=== PATIENT | male | born 1975 | race Caucasian/White ===

== ENCOUNTER 2017-03-28 11:05 | Emergency (ER) | payer BC, OTHER ==
[2017-03-28] MEDS ORDERED: CYCLOBENZAPRINE HCL 10 MG TABLET PO ONE (12:08)
[2017-03-28] MEDS ORDERED: DEXAMETHASONE SOD PHOS INJ 10 MG/1 ML VIAL IM ONE (12:08)
[2017-03-28] MEDS ORDERED: KETOROLAC TROMETHAMINE 60 MG/2 ML SDV IM ONE (12:08)
--- NOTE | 2017-03-28 12:14 | ER Document Report ---
ED Neck/Back Problem - General Chief Complaint: Back Pain Stated Complaint: BACK PAIN Time Seen by Provider: 03/28/17 11:47 Mode of Arrival: Ambulatory Information source: Patient Notes: 41-year-old male presents to ED for complaint of lower and upper back pain times about 9 days. He states they were living in [place] and will load a truck and moved to [place]. 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 He states at first he felt just not right then the first day he was stiff then the next morning he was still stiff and has not been able to work out the pain since then he states now the pain is going down both legs. TRAVEL OUTSIDE OF THE [place] IN LAST 30 DAYS: No - HPI Patient complains to provider of: Upper back, Lower back Onset: Other - 9 days Where: Outdoors, Public place Onset: Gradual Timing: Worse Quality of pain: Sharp, Throbbing Severity: Moderate Pain Level: 4 Context: Lifting - Patient loaded and unloaded a moving truck to move from [place] to [place] Recent injury: Possibly Associated symptoms: Radiation to leg, Lower back pain, Upper back pain. denies : Incontinence, Like prior neck/back pain, Motor loss, Numbness/tingling, Radiation to arm, Radiation to chest, Sensory loss, Sweaty, Unable to urinate Exacerbated by: Movement of trunk, Sitting position Relieved by: Nothing Similar symptoms previously: No Recently seen / treated by doctor: No - Related Data Allergies/Adverse Reactions: aspirin [Aspirin] Allergy (Verified 03/28/17 11:29) Penicillins Allergy (Verified 03/28/17 11:29) Past Medical History - General Information source: Patient - Social History Smoking Status: Never Smoker Cigarette use (# per day): No Chew tobacco use (# tins/day): No Smoking Education Provided: No Frequency of alcohol use: None Drug Abuse: None Lives with: Family Family History: Arthritis, CAD, CVA, DM, Hyperlipidemia, Hypertension, Malignancy, Thyroid Disfunction Patient has suicidal ideation: No - Past Medical History Cardiac Medical History: Reports: Hx Hypertension Pulmonary Medical History: Reports: None EENT Medical History: Reports: None Neurological Medical History: Reports: None Endocrine Medical History: Reports: None Renal/ Medical History: Reports: None Malignancy Medical History: Reports None GI Medical History: Reports: None Musculoskeltal Medical History: Reports Hx Musculoskeletal Trauma - neck fracture x2 and coccyx fracture Skin Medical History: Reports None Psychiatric Medical History: Reports: None Traumatic Medical History: Reports: None Infectious Medical History: Reports: None Past Surgical History: Reports: Hx Appendectomy - Immunizations Immunizations up to date: Yes Hx Diphtheria, Pertussis, Tetanus Vaccination: Yes Review of Systems - Review of Systems Constitutional: No symptoms reported EENT: No symptoms reported Cardiovascular: No symptoms reported Respiratory: No symptoms reported Gastrointestinal: denies: Diarrhea, Nausea, Constipation, Fecal incontinence Genitourinary: denies: Incontinence, Retention Male Genitourinary: No symptoms reported Musculoskeletal: Back pain, Muscle pain, Muscle stiffness Skin: No symptoms reported Hematologic/Lymphatic: No symptoms reported Neurological/Psychological: No symptoms reported -: Yes All other systems reviewed and negative Physical Exam - Vital signs Vitals: Temp Pulse Resp BP Pulse Ox 97.6 F 74 16 154/99 H 99 03/28/17 11:30 03/28/17 11:30 03/28/17 11:30 03/28/17 11:30 03/28/17 11:30 Interpretation: Normal - General General appearance: Appears well, Alert - HEENT Head: Normocephalic, Atraumatic Eyes: Normal Pupils: PERRL - Respiratory Respiratory status: No respiratory distress Chest status: Nontender Breath sounds: Normal Chest palpation: Normal - Cardiovascular Rhythm: Regular Heart sounds: Normal auscultation Murmur: No - Abdominal Inspection: Normal Distension: No distension Bowel sounds: Normal Tenderness: Nontender Organomegaly: No organomegaly - Back Back: Normal, Tender, Vertebra tenderness, Scars - Neck area. No: Deformity/ step-off, CVA tenderness, Scoliosis, Wounds - Extremities General upper extremity: Normal inspection, Nontender, Normal color, Normal ROM , Normal temperature General lower extremity: Normal inspection, Nontender, Normal color, Normal ROM , Normal temperature, Normal weight bearing. No: Dada's sign - Neurological Neuro grossly intact: Yes Cognition: Normal Orientation: AAOx4 [place] Coma Scale Eye Opening: Spontaneous [place] Coma Scale Verbal: Oriented [place] Coma Scale Motor: Obeys Commands Jessica Coma Scale Total: 15 Speech: Normal Motor strength normal: LUE, RUE, LLE, RLE Sensory: Normal - Psychological Associated symptoms: Normal affect, Normal mood - Skin Skin Temperature: Warm Skin Moisture: Dry Skin Color: Normal Course - Re-evaluation Re-evalutation: 03/28/17 14:11 Discussed x-ray with patient. Written report of x-ray given to patient to follow-up with his primary doctor. Patient given a list of local primary doctors to choose a doctor since he just moved here from [place]. Patient states that a year ago he was taking lisinopril 20 mg p.o. daily for blood pressure but has not been on it for at least a year. Patient was given a prescription for lisinopril 10 until he can follow-up with her primary doctor. 03/28/17 14:11 Patient states he does feel better from his pain but he still is having some pain. - Vital Signs Vital signs: Temp Pulse Resp BP Pulse Ox 97.6 F 74 16 154/99 H 99 03/28/17 11:30 03/28/17 11:30 03/28/17 11:30 03/28/17 11:30 03/28/17 11:30 - Diagnostic Test Radiology reviewed: Image reviewed, Reports reviewed Discharge - Discharge Clinical Impression: Back pain Qualifiers: Back pain location: thoracic back pain Chronicity: acute Back pain laterality: bilateral Qualified Code(s): M54.6 - Pain in thoracic spine Low back pain Qualifiers: Chronicity: acute Back pain laterality: bilateral Sciatica presence: with sciatica Sciatica laterality: bilateral sciatica Qualified Code(s): M54.42 - Lumbago with sciatica, left side Condition: Stable Disposition: HOME, SELF-CARE Instructions: Family Physicians / Practices, Stretching Exercises for the Back ([facility]), Upper Back Strain ([facility]) Additional Instructions: LOW BACK PAIN: Three out of every four people will have an episode of disabling back pain during their lifetime. Most commonly the pain is due to straining of the muscles and ligaments in the low back. Usual treatment includes: (1) Rest on a firm surface. Avoid lying on your stomach. (2) Ice pack the painful area. After a few days, gentle heat may be used intermittently to relax the area, or ice packs can be continued. (3) Medication may be needed -- muscle relaxers and antiinflammatory medicines are commonly used. (4) As the back improves, exercises are prescribed to strengthen the back and abdominal muscles. Your doctor will advise you on the proper care for your back at each stage in your recovery. You may be better in a few days -- or healing may take several weeks. If new symptoms of a "herniated disc" (radiation of pain, numbness, or tingling down the back of the leg or weakness in the leg) occur, you should be re-examined. Further testing may be necessary. STEROID MEDICATION: You have been given an injection of medicine of the cortisone/steroid class. This medication is used to control inflammation or allergy. It is often continued as a pill for a short period of time, until the acute process subsides. There are usually no side effects from short-term use of cortisone-like medications. Some persons feel an increased sense of well-being and are not sleepy at bedtime. Long-term use of cortisone medications is best avoided, unless required for a severe condition. If your condition does not remit, or relapses after the course of corticosteroid medication, you should consult your physician. Toradol Injection You have been given an injection of ketorolac tromethamine (Toradol). This is an excellent, safe drug for pain control. It also has potent antiinflammatory action. You should have significant pain relief within about one hour. Toradol is not addicting and is non-sedating. It does not interfere with driving or work. Call or return if you develop itching, hives, shortness of breath, or rash. Anti-Inflammatory Medication You have received a prescription for an antiinflammatory agent. This is an excellent, safe drug for pain control. In addition, it has potent antiinflammatory effects which are beneficial, especially in the treatment of injuries, arthritis, or tendonitis. It's best to take this medicine with food. Persons with ulcer disease or allergy to aspirin should notify their physician of this before taking this drug. Take the medication exactly as prescribed. Don't take additional doses unless instructed to do so by your doctor. If you develop wheezing, shortness of breath, hives, faintness, stomach pain, vomiting, or dark black stools, return for re-evaluation at once. MUSCLE RELAXERS: Muscle relaxing medications are usually prescribed for acute muscle spasm or injury to the neck and back. They are often combined with antiinflammatory pain medication for increased relief. You may stop the muscle relaxer when the pain and stiffness have improved. Start the medication again if spasms recur. Muscle relaxers may cause drowsiness, especially with the first dose. Do not operate machinery or drive while under the effects of the medication. Most muscle relaxers last up to 24 hours. Do not combine the medication with alcohol. ICE PACKS: Apply ice packs frequently against the painful area. Many different schedules are recommended, such as "20 minutes on, 20 minutes off" or "one hour ice, two hours rest." If you need to work, you may need to go longer between ice treatments. You should plan to have the area ice packed AT LEAST one fourth of the time. The ice should be applied over the wrap, tape, or splint, or over a layer of cloth -- not directly against the skin. Some ice bags have a built-in cloth and can be put directly on the skin. WARM PACKS: After approximately two days, apply gentle heat (such as a heating pad or hot water bottle) for about 20 to 30 minutes about every two hours -- at least four times daily. Warmth and elevation will help you make a more rapid recovery , and will ease the pain considerably. Do not use HOT heat, and never apply heat for longer than 30 minutes. The continuous heat can invisibly damage skin and muscles -- even when no burn is seen on the surface. Damaged muscles can make you MORE sore. FOLLOW-UP CARE: If you have been referred to a physician for follow-up care, call the physician s office for an appointment as you were instructed or within the next two days. If you experience worsening or a significant change in your symptoms, notify the physician immediately or return to the Emergency Department at any time for re-evaluation. Prescriptions: Cyclobenzaprine HCl [Flexeril 10 mg Tablet] 10 mg PO TIDP PRN #15 tab PRN Reason: Lisinopril [Zestril] 10 mg PO DAILY #30 tablet Naproxen 500 mg PO BIDP PRN #20 tablet PRN Reason: Forms: Elevated Blood Pressure, Smoking Cessation Education Referrals: JEFRY IVERSON MD [NO LOCAL MD] - Follow up as needed
--- NOTE | 2017-03-28 13:38 | RADIOLOGY REPORT (SQ) ---
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 NUMBER OF VIEWS: Two views. TECHNIQUE: AP and lateral radiographic images acquired of the thoracic spine. LIMITATIONS: None. FINDINGS: MINERALIZATION: Normal. ALIGNMENT: Normal. No scoliosis. VERTEBRAE: No fracture or bone lesion. Maintained height, normal segmentation. DISCS: No significant loss of height or significant narrowing. No large osteophytes. HARDWARE: None in the spine. MEDIASTINUM AND SOFT TISSUES: Normal heart size and aortic contour. No soft tissue abnormality. VISUALIZED LUNG GUO: Clear. OTHER: No other significant finding. IMPRESSION: NO SIGNIFICANT RADIOGRAPHIC FINDING IN THE THORACIC SPINE. TECHNICAL DOCUMENTATION: JOB ID: [id number] [employer]- All Rights Reserved
--- NOTE | 2017-03-28 13:38 | RADIOLOGY REPORT (SQ) ---
EXAM DESCRIPTION: L SPINE WHOLE COMPLETED DATE/TIME: 03/28/2017 1:31 pm REASON FOR STUDY: severe back pain loading and unloading truck COMPARISON: None. NUMBER OF VIEWS: Five views including obliques. TECHNIQUE: AP, lateral, oblique, and sacral radiographic images acquired of the lumbar spine. LIMITATIONS: None. FINDINGS: MINERALIZATION: Normal. SEGMENTATION: Normal. No transitional anatomy. ALIGNMENT: Normal. VERTEBRAE: Maintained height. No fracture or worrisome bone lesion. DISCS: Preserved height. No significant osteophytes or end plate irregularity. POSTERIOR ELEMENTS: Pedicles and facets are intact. No pars defect or posterior arch defects. HARDWARE: None in the spine. PARASPINAL SOFT TISSUES: Normal. PELVIS: Intact as visualized. No fractures or worrisome bone lesions. SI joints intact. OTHER: No other significant finding. IMPRESSION: NORMAL 5 VIEW LUMBAR SPINE. TECHNICAL DOCUMENTATION: JOB ID: [id number] [employer]- All Rights Reserved
[2017-03-28 14:11] VITALS: BP 142/104
== END 2017-03-28 14:12 | disposition home or self-care (01) ==
LOC: ER 11:05
DX: M54.6 Pain in thoracic spine (principal); M54.42 Lumbago with sciatica, left side; I10 Essential (primary) hypertension; Z88.0 Allergy status to penicillin; Z88.6 Allergy status to analgesic agent
CPT/HCPCS: 99284; 96372; 72110; 72070; J1885; J1100

== ENCOUNTER 2017-07-05 00:43 | Emergency (ER) | payer OTHER ==
[2017-07-05] MEDS ORDERED: OXYCODONE-ACETAMINOPHEN 5-325 MG TABLET PO ONE (02:34)
--- NOTE | 2017-07-05 03:31 | RADIOLOGY REPORT (SQ) ---
EXAM DESCRIPTION: ANKLE LEFT COMPLETE CLINICAL HISTORY: pain COMPARISON: None. FINDINGS: 3 views of the left ankle. Tibial plafond and talar dome are intact. Base of the fifth metatarsal is intact. Normal osseous mineralization. No acute fracture. IMPRESSION: No acute fracture or dislocation.
--- NOTE | 2017-07-05 03:32 | RADIOLOGY REPORT (SQ) ---
EXAM DESCRIPTION: FOOT LEFT COMPLETE CLINICAL HISTORY: pain COMPARISON: None. FINDINGS: 3 views of the left foot. No acute fracture or dislocation. The tarsals and metatarsals are in appropriate alignment. Normal osseous mineralization. IMPRESSION: No acute fracture or dislocation.
[2017-07-05] MEDS ORDERED: PREDNISONE 20 MG TABLET PO ONE (03:42)
--- NOTE | 2017-07-05 03:43 | ER Document Report ---
ED General - General Chief Complaint: Ankle Pain Stated Complaint: FOOT PAIN Time Seen by Provider: 07/05/17 01:18 Notes: Patient is a 42-year-old male who presents with complaint of foot pain. Says his foot is been hurting now for several days. She initially had some cramping in his thigh 2 days ago but that has since gone. He says he now has a lot of pain into his left foot. He says that it started after he was working on his truck. He says he does not lift anything heavy or squatting. He is more laying underneath truck to change oil. Mentions a small red spot on the medial aspect of his left foot. He says the pain is around the area and underneath the foot. He says he has not had any pain up into his leg except for the initial cramping in the thigh. He currently has absolutely no pain into his leg. He denies any swelling or edema to his leg. Has any fevers. TRAVEL OUTSIDE OF THE [place] IN LAST 30 DAYS: No - Related Data Allergies/Adverse Reactions: aspirin [Aspirin] Allergy (Verified 05/18/17 18:26) Penicillins Allergy (Verified 05/18/17 18:26) Past Medical History - Social History Smoking Status: Unknown if Ever Smoked Chew tobacco use (# tins/day): No Frequency of alcohol use: Rare Drug Abuse: None Family History: Arthritis, CAD, CVA, DM, Hyperlipidemia, Hypertension, Malignancy, Thyroid Disfunction Patient has suicidal ideation: No Patient has homicidal ideation: No - Past Medical History Cardiac Medical History: Reports: Hx Heart Attack, Hx Hypertension Renal/ Medical History: Denies: Hx Peritoneal Dialysis Musculoskeltal Medical History: Reports Hx Musculoskeletal Trauma - neck fracture x2 and coccyx fracture Past Surgical History: Reports: Hx Appendectomy - Immunizations Immunizations up to date: Yes Hx Diphtheria, Pertussis, Tetanus Vaccination: Yes Review of Systems - Review of Systems Notes: My Normal Review Basic REVIEW OF SYSTEMS: CONSTITUTIONAL : Denies fever, chills, or sweats. Denies recent illness. RESPIRATORY: Denies cough, cold, or chest congestion. Denies shortness of breath, difficulty breathing, or wheezing. GASTROINTESTINAL: Denies abdominal pain. Denies nausea, vomiting, or diarrhea. Denies constipation. Last BM: MUSCULOSKELETAL: Left foot pain SKIN: Denies rash or skin lesions. LYMPHATIC: Denies swollen, enlarged glands. NEUROLOGICAL: Denies sensory or motor loss. ALL OTHER SYSTEMS REVIEWED AND NEGATIVE. Physical Exam - Vital signs Vitals: Temp Pulse Resp BP Pulse Ox 98 F 102 H 18 127/88 H 99 07/05/17 00:58 07/05/17 00:58 07/05/17 00:58 07/05/17 00:58 07/05/17 00:58 - Notes Notes: General Appearance: Well nourished, alert, cooperative, no acute distress, moderate obvious discomfort. Vitals: reviewed, See vital signs table. Extremities: strength 5/5 in all extremities, good pulses in all extremities, the small area of redness is really just a small pinkish color area over the skin of the medial part of her ankle which typically is tax representative of where this shoe has been rubbing his foot. Stenosis around this area but also on the bottom aspect of the foot and some of the dorsum as well. There is no crepitance to palpation. There is no spreading erythema. There is no pain into the leg itself. There is no edema into the leg. I cannot re-create any pain to palpation of the thigh calf or behind the knee. Patient is able flex and extend the foot without difficulty but does have a small amount of pain in doing so. Good peripheral pulses. He has good capillary refill in his toes. Skin: warm, dry, appropriate color, no rash Neuro: speech clear, oriented x 3, normal affect, responds appropriately to questions. Course - Re-evaluation Re-evalutation: 07/05/17 06:59 The exact cause of the patient's foot pain is not 100's of clear. I do not suspect DVT being that the pain is in his foot and easily reproducible palpation of his foot. The remainder of his lower extremity is completely nontender and he has no edema. I do not suspect infection. He has no significant redness or warmth to the foot. Suspect he may have a tendinitis in his foot. I will place him on steroids as well as some pain medicine. I encouraged him to take mainly NSAID medications until he take the opiate medications for breakthrough pain. I encouraged him follow-up with orthopedist for reevaluation. Informed him to return to ER immediately if he has any redness, swelling, fevers, or if his pain is worsening. Patient agrees with plan will be discharged home. Dictation of this chart was performed using voice recognition software; therefore, there may be some unintended grammatical errors. - Vital Signs Vital signs: Temp Pulse Resp BP Pulse Ox 98.1 F 86 18 126/87 H 99 07/05/17 04:04 07/05/17 04:04 07/05/17 04:04 07/05/17 04:04 07/05/17 04:04 Discharge - Discharge Clinical Impression: Foot pain, right Condition: Good Disposition: HOME, SELF-CARE Additional Instructions: Please use the crutches for the next week to remain nonweight bearing with your right foot. Please do not drive when taking the Morphine. Please take Motrin 600mg every 6 hours for pain with food. Take the morphine if you are still have a large amount of pain despite the motrin. Please return to the ER if you have any spreading redness, fevers, spreading pain, or if you have any further concerns. Please follow up with the orthopedist in 1 week for reevaluation. Prescriptions: Morphine Sulfate [Morphine Ir 15 mg Tablet] 15 mg PO Q6 PRN #15 tablet PRN Reason: Prednisone 10 mg PO ASDIR #42 tablet Referrals: OCTAVIO TORRES MD [ACTIVE STAFF] - Follow up in 1 week
[2017-07-05 04:07] VITALS: BP 126/87
== END 2017-07-05 04:07 | disposition home or self-care (01) ==
LOC: ER 00:43
DX: M79.671 Pain in right foot (principal); M25.572 Pain in left ankle and joints of left foot; M79.672 Pain in left foot; X58.XXXA Exposure to other specified factors, initial encounter
CPT/HCPCS: 99283; 73610; 73630; J7512

== ENCOUNTER 2018-04-26 15:00 | Emergency (ER) | payer OTHER ==
[2018-04-26] MEDS ORDERED: LIDOCAINE 1% INJ-PF (10 MG/ML) 30 ML SDV INJ ONE (16:35)
--- NOTE | 2018-04-26 17:58 | ER Document Report ---
ED Hand/Wrist Injury - General Chief Complaint: Laceration Stated Complaint: HAND LACERATION Time Seen by Provider: 04/26/18 16:35 Mode of Arrival: Ambulatory Information source: Patient TRAVEL OUTSIDE OF THE [place] IN LAST 30 DAYS: No - HPI Injury to: Palm, Wrist Onset: Just prior to arrival Where: Neighbor's Timing: Constant Quality of pain: Achy, Throbbing Severity: Moderate Pain Level: 1 Context: Laceration - Related Data Allergies/Adverse Reactions: aspirin [Aspirin] Allergy (Verified 05/18/17 18:26) Penicillins Allergy (Verified 05/18/17 18:26) Past Medical History - General Information source: Patient, Relative - Social History Smoking Status: Current Every Day Smoker Cigarette use (# per day): Yes - Half a pack a day Chew tobacco use (# tins/day): No Smoking Education Provided: Yes Frequency of alcohol use: Occasional Drug Abuse: None Lives with: Family Family History: Reviewed & Not Pertinent, Arthritis, CAD, CVA, DM, Hyperlipidemia, Hypertension, Malignancy, Thyroid Disfunction Patient has suicidal ideation: No Patient has homicidal ideation: No - Past Medical History Cardiac Medical History: Reports: Hx Heart Attack, Hx Hypertension Renal/ Medical History: Denies: Hx Peritoneal Dialysis Musculoskeletal Medical History: Reports Hx Musculoskeletal Trauma - neck fracture x2 and coccyx fracture Past Surgical History: Reports: Hx Appendectomy - Immunizations Immunizations up to date: Yes Hx Diphtheria, Pertussis, Tetanus Vaccination: Yes Review of Systems - Review of Systems Constitutional: No symptoms reported EENT: No symptoms reported Cardiovascular: No symptoms reported Respiratory: No symptoms reported Gastrointestinal: No symptoms reported Genitourinary: No symptoms reported Male Genitourinary: No symptoms reported Musculoskeletal: No symptoms reported Skin: No symptoms reported, Other - Laceration Hematologic/Lymphatic: No symptoms reported Neurological/Psychological: No symptoms reported -: Yes All other systems reviewed and negative Physical Exam - Vital signs Vitals: Temp Pulse Resp BP Pulse Ox 97.4 F 108 H 14 121/92 H 97 04/26/18 15:08 04/26/18 15:08 04/26/18 15:08 04/26/18 15:08 04/26/18 15:08 Interpretation: Hypertensive, Other - Diastolic hypertension - Notes Notes: Well-nourished well-developed male no apparent distress - General General appearance: Appears well - HEENT Head: Normocephalic, Atraumatic Eyes: Normal - Respiratory Respiratory status: No respiratory distress Chest status: Nontender Breath sounds: Normal. No: Rales, Rhonchi, Stridor, Wheezing Chest palpation: Normal - Cardiovascular Rhythm: Regular Heart sounds: Normal auscultation Murmur: No - Extremities General upper extremity: Tender, Normal ROM, Normal strength, Normal temperature. No: Normal color General lower extremity: Normal inspection, Nontender, Normal ROM, Normal strength Hand: Tender, Laceration, Swelling, Other - Examination of patient's hand and wrist shows that he has been in the palm of his hand right hand that has a flat presentation of about 2 cm total. It goes from a very thin piece of skin into deeper tissue. It is right in the palm of the hand. It was examined under bloodless field by using a tourniquet on the arm. There is no tendon involvement. Patient has full flexion-extension of the hands and fingers got good opposition and he has good cap refill in the nailbeds of the fingers. Further examination of the wrist area shows there to be on the thumb side of the wrist a 2 cm laceration that is linear there it was explored under a bloodless field as well it was found not to have any foreign bodies. The appeared to be a clean cut. Patient has full range of motion at the wrist there again is no signs of any tendon involvement. Patient has good pulses on the radius area as well.. No: Tendon deficit Course - Re-evaluation Re-evalutation: 04/26/18 17:58 Patient was soaked in Hibiclens and warm water. Stayed approximately 30 minutes so he got good bleeding and good time. Patient did fill the basins substantially with redness. I applied 4 sutures to the palm and 4 sutures to the wrist area. I have informed patient that no matter what I do or have the sutures I put in if he is not obedient does not listen he can overdo it and pull the sutures out. I particularly pointed to the very for suture placed which was at the distal portion of the laceration and so just a light amount of skin that it was cut there and I put a suturing to hold it now. I have informed him this could pull out and anytime it is not a big deal just continue applying an antibiotic cream and Band-Aid. - Vital Signs Vital signs: Temp Pulse Resp BP Pulse Ox 97.4 F 108 H 14 121/92 H 97 04/26/18 15:08 04/26/18 15:08 04/26/18 15:08 04/26/18 15:08 04/26/18 15:08 Discharge - Discharge Clinical Impression: Laceration of wrist Qualifiers: Encounter type: initial encounter Laterality: right Qualified Code(s): S61.511A - Laceration without foreign body of right wrist, initial encounter Laceration of palm without complication Qualifiers: Encounter type: initial encounter Laterality: right Qualified Code(s): S61.411A - Laceration without foreign body of right hand, initial encounter Disposition: HOME, SELF-CARE Instructions: Laceration Care (OM) Additional Instructions: Home and rest. Keep the area clean and dry for 48 hours. You may apply an antibiotic cream if he so desired to the areas 3 times a day. Keep a dressing on it for the next 2-4 days. He will need to return to ER in 10-12 days for suture removal. Should any of the sutures pull out primarily the one that we discussed this is not a big deal discontinued treatment. I have placed you on an antibiotic for coverage again should there be redness in the area streaking up the arm any concerns come back to ER and that this relocated. Be Profen alternate with Tylenol for pain and discomfort. Keep your hand elevated above your heart for the next 24 hours as much as possible. Change dressing 2-3 times a day and when wet or dirty. He let it go open to air after 4 days. Prescriptions: Sulfamethoxazole/Trimethoprim [Bactrim Ds Tablet] 1 each PO BID #40 tablet
[2018-04-26 18:48] VITALS: BP 133/91
== END 2018-04-26 18:46 | disposition home or self-care (01) ==
LOC: ER 15:00
DX: S61.411A Laceration without foreign body of right hand, initial encounter (principal); S61.511A Laceration without foreign body of right wrist, initial encounter; W26.0XXA Contact with knife, initial encounter; Y92.009 Unspecified place in unspecified non-institutional (private) residence as the place of occurrence of the external cause; I10 Essential (primary) hypertension; F17.210 Nicotine dependence, cigarettes, uncomplicated; I25.2 Old myocardial infarction; Z88.0 Allergy status to penicillin; Z88.6 Allergy status to analgesic agent
CPT/HCPCS: 99283; 12002; J3490